=== PATIENT | female | born 1995 | race American Indian/Alaskan Native ===

== ENCOUNTER 2019-07-11 19:09 | Emergency (ER) | payer SELFPAY ==
[2019-07-11] MEDS ORDERED: NORCO 5/325 PO ONE (20:01)
--- NOTE | 2019-07-11 20:06 | Emergency Department Report ---
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 Patient states she was attempting to sit on a stool with wheels, when the stool rolled away from her. Patient fell, hitting her head on the door. Questionable LOC. Patient reports headache, neck pain, double vision. Patient denies any headache or lightheadedness prior to the fall. Patient denies any past medical history, not currently on any medications. MD Complaint: head injury -: This evening Mechanism of Injury: mechanical fall Location: occipital Loss of Consciousness: unsure Place: work Severity: moderate Quality: aching Consistency: constant Other Injuries: none Associated Symptoms: vision changes, neck pain. denies: vomiting, numbness, weakness, tingling - Related Data Previous Rx's Medication Instructions Recorded Last Taken Type Butalb/Acetamin/Caff 50-325-40 1 tab PO Q6HR PRN #10 tab 07/11/19 Unknown Rx [Fioricet] Meclizine [Antivert] 25 mg PO TID PRN #20 tablet 07/11/19 Unknown Rx Naproxen [Naprosyn] 500 mg PO BID #20 tablet 07/11/19 Unknown Rx Allergies/Adverse reactions: Allergies Allergy/AdvReac Type Severity Reaction Status Date / Time No Known Allergies Allergy Unverified 07/11/19 19:21 ED Review of Systems ROS: Stated complaint: GROUND LEVEL FALL HIT HEAD ON DOOR Other details as noted in HPI Comment: All other systems reviewed and negative Eyes: vision change Gastrointestinal: denies: nausea, vomiting Musculoskeletal: as per HPI Neurological: headache. denies: weakness, numbness, paresthesias ED Past Medical Hx - Past Medical History Previous Medical History?: No - Surgical History Past Surgical History?: No - Social History Smoking Status: Never Smoker Substance Use Type: None - Medications Home Medications: Home Medications Medication Instructions Recorded Confirmed Last Taken Type Butalb/Acetamin/Caff 50-325-40 1 tab PO Q6HR PRN #10 tab 07/11/19 Unknown Rx [Fioricet] Meclizine [Antivert] 25 mg PO TID PRN #20 tablet 07/11/19 Unknown Rx Naproxen [Naprosyn] 500 mg PO BID #20 tablet 07/11/19 Unknown Rx ED Physical Exam - General Limitations: No Limitations General appearance: alert, in no apparent distress - Head Head exam: Present: atraumatic, normocephalic - Eye Eye exam: Present: normal appearance, EOMI - ENT ENT exam: Present: mucous membranes moist - Neck Neck exam: Present: normal inspection, tenderness (right lateral), full ROM - Respiratory Respiratory exam: Present: normal lung sounds bilaterally. Absent: respiratory distress - Cardiovascular Cardiovascular Exam: Present: regular rate, normal rhythm - GI/Abdominal GI/Abdominal exam: Present: soft. Absent: distended, tenderness - Extremities Exam Extremities exam: Present: normal inspection, full ROM - Neurological Exam Neurological exam: Present: alert, oriented X3, CN II-XII intact. Absent: motor sensory deficit - Psychiatric Psychiatric exam: Present: normal affect, normal mood - Skin Skin exam: Present: warm, dry, intact, normal color ED Course Vital Signs 07/11/19 07/11/19 19:20 21:36 Temperature 98.5 F Pulse Rate 77 82 Respiratory 18 17 Rate Blood Pressure 120/87 Blood Pressure 123/75 [Left] O2 Sat by Pulse 99 100 Oximetry - Reevaluation(s) Reevaluation #1: 07/11/19 21:20 Pt feeling much better. Likely mild concussion. CT Head is normal. GCS 15. Pt is going to have a friend take her home. Outpt f/u advised. Return precautions given. - Radiology Data Radiology results: report reviewed, image reviewed - Differential Diagnosis concussion, intracranial injury, skull fracture Critical care attestation.: If time is entered above; I have spent that time in minutes in the direct care of this critically ill patient, excluding procedure time. ED Disposition Clinical Impression: Head injury, Acute cervical myofascial strain Disposition: - TO HOME OR SELFCARE Is pt being admited?: No Condition: Stable Instructions: Muscle Strain (ED), Concussion (ED) Prescriptions: Meclizine [Antivert] 25 mg PO TID PRN #20 tablet PRN Reason: Vertigo Butalb/Acetamin/Caff 50-325-40 [Fioricet] 1 tab PO Q6HR PRN #10 tab PRN Reason: Headache Naproxen [Naprosyn] 500 mg PO BID #20 tablet Referrals: ALL SHAW MD [Referring] - as needed Forms: Work/School Release Form(ED) Time of Disposition: 21:23
--- NOTE | 2019-07-11 21:04 | Cat Scan Report ---
CT head/brain wo con INDICATION: Headache after head injury. TECHNIQUE: Routine CT head without contrast. All CT scans at this location are performed using CT dose reduction for ALARA by means of automated exposure control. COMPARISON: None. FINDINGS: BRAIN / INTRACRANIAL CONTENTS: No acute hemorrhage, brain edema, mass effect, or hydrocephalus. Marjorie l brewster-white differentiation. No chronic infarct or focal atrophy. Normal brain volume and ventricula r/sulcal size for age. CALVARIUM/SKULL BASE/CRANIOCERVICAL JUNCTION: No evidence of fracture. ORBITS: No significant abnormality of visualized orbits. SINUSES / MASTOIDS: No significant abnormality of visualized sinuses and mastoid air cells. ADDITIONAL FINDINGS: None. IMPRESSION: 1. No acute post-traumatic intracranial abnormality. Signer Name: Raoul Rivera MD Signed: 07/11/2019 8:59 PM Workstation Name: [id number]
--- NOTE | 2019-07-11 21:05 | Cat Scan Report ---
CT CERVICAL SPINE WITHOUT CONTRAST INDICATION: Neck pain after fall. TECHNIQUE: Axial CT images of the spine were obtained. Sagittal and coronal reformatted images were produced. Al l CT scans at this location are performed using CT dose reduction for ALARA by means of automated exp osure control. COMPARISON: None available. FINDINGS: ACUTE FRACTURE(S) OR SUBLUXATION: None. SPINAL DEGENERATIVE CHANGES: No significant degenerative changes. PARASPINAL SOFT TISSUES: No soft tissue swelling or other acute abnormalities. ADDITIONAL FINDINGS: No significant additional findings. IMPRESSION: 1. No acute fracture or subluxation in the spine in neutral position. Signer Name: Raoul Rivera MD Signed: 07/11/2019 9:00 PM Workstation Name: [id number]
[2019-07-11 21:37] VITALS: BP 123/75
== END 2019-07-11 21:36 | disposition home or self-care (01) ==
LOC: ED 19:09
DX: S16.1XXA Strain of muscle, fascia and tendon at neck level, initial encounter (principal); S09.90XA Unspecified injury of head, initial encounter; Z79.899 Other long term (current) drug therapy; W22.8XXA Striking against or struck by other objects, initial encounter; Y93.89 Activity, other specified; Y92.098 Other place in other non-institutional residence as the place of occurrence of the external cause; Y99.8 Other external cause status
CPT/HCPCS: 70450; 72125; 99283